=== PATIENT | female | born 1975 | race Caucasian/White ===

== ENCOUNTER → 2017-01-16 | Outpatient (CLI) | payer OTHER | END | disposition home or self-care (01) | LOC: CFH 15:13 | PROVIDERS: ATTEND Genetic Counselor, MS | DX: Z12.31 Encounter for screening mammogram for malignant neoplasm of breast (principal) | CPT/HCPCS: G0202 ==

== ENCOUNTER 2020-02-08 13:18 | Emergency (ER) | payer OTHER ==
[~2020-02-08] VITALS: Ht 157.5 cm; Wt 94.6 kg
--- NOTE | 2020-02-08 13:46 | NUR ---
THIS IS A 44 YO F W/ C/O ANXIETY, W/ SOB AND FAST HEART RATE X3 DAYS. PT REPORTS FIRST PANIC ATTACK IN OCTOBER OF THIS YEAR. DOES NOT TAKE DAILY MEDS FOR ANXIETY. TOOK HYDROXYZINE PRN 3 DAYS AGO W/ NO RELIEF. PT REPORTS INTERMITTENT RT CALF PAIN X1 MONTH. PT RESTING ON [employer] W/ CALL LIGHT IN REACH AND FAMILY AT BEDSIDE. ROSA SHELTON AT BEDSIDE FOR ED EVAL. RESP EVEN AND UNLABORED, LEAH.
[2020-02-08] MEDS ORDERED: LORazepam 1MG TABLET ONE (13:58)
[2020-02-08] MEDS ORDERED: LORazepam 1MG TABLET PO ONE (14:00)
--- NOTE | 2020-02-08 14:07 | NUR ---
PT MEDICATED PER EMAR. RESTING ON GURNEY W/ CALL LIGHT IN REACH AND FAMILY AT BEDSIDE. VSS, PRICEN. AWAITING US.
[2020-02-08 14:14] LABS: MEAN CORPUSCULAR HEMOGLOBIN 31.9 pg (27.0-34.8); MEAN CORPUSCULAR HGB CONC 33.7 g/dL (32.4-35.8); MEAN CORPUSCULAR VOLUME 94.9 fL (80-100); MEAN PLATELET VOLUME 6.7 fL (7.4-10.4); PLATELET COUNT 454 x10^3/uL (130-400); RED CELL DISTRIBUTION WIDTH 13.4 % (9.6-15.2)
[2020-02-08 14:23] LABS: ALBUMIN 3.4 g/dL (3.4-5.0); ANION GAP 8 mmol/L (5-15); CALCIUM 9.2 mg/dL (8.5-10.1); CHLORIDE 113 mmol/L (98-107); CREATININE 0.75 mg/dL (0.55-1.02); T4 (THYROXINE) 11.6 mcg/dL (4.8-13.9)
--- NOTE | 2020-02-08 14:26 | NUR ---
US AT BEDSIDE.
[2020-02-08 14:27] LABS: TROPONIN I < 0.015 ng/mL (0.000-0.045)
[2020-02-08 14:44] LABS: BASOPHILS # (AUTO) 0.03 x10^3/uL (0-0.1); BASOPHILS % (AUTO) 0 % (0-1); EOSINOPHILS # (AUTO) 0.12 x10^3/uL (0-0.4); EOSINOPHILS % (AUTO) 1 % (1-7); LYMPHOCYTES # (AUTO) 2.12 x10^3/uL (1-3.4); LYMPHOCYTES % (AUTO) 18 % (22-44); MD SCAN; MONOCYTES # (AUTO) 0.49 x10^3/uL (0.2-0.8); MONOCYTES % (AUTO) 4 % (2-9); NEUTROPHILS # (AUTO) 9.09 x10^3/uL (1.8-6.8); NEUTROPHILS % (AUTO) 77 % (42-75)
[2020-02-08 14:46] VITALS: BP 129/79
--- NOTE | 2020-02-08 15:01 | NUR ---
REPORT FROM CARLITA PLASCENCIA, ASSUME CARE OF PT AT THIS TIME.
== END 2020-02-08 15:24 | disposition home or self-care (01) ==
LOC: ED 13:51
DX: F41.1 Generalized anxiety disorder (principal); M79.661 Pain in right lower leg; R00.2 Palpitations; R07.89 Other chest pain; M79.89 Other specified soft tissue disorders
CPT/HCPCS: 36415; 71045; 80048; 82040; 84436; 84443; 84484; 85025; 85379; 93005; 99285

== ENCOUNTER 2020-03-01 15:15 | Emergency (ER) | payer OTHER ==
[~2020-03-01] VITALS: Ht 157.5 cm; Wt 99.2 kg
--- NOTE | 2020-03-01 15:54 | NUR ---
PT AMBULATORY TO ROOM 19 W/ C/O CHEST TIGHTNESS, FEELINGS OF ANXIETY, SOB STARTED LAST NIGHT. PT STATES SHE TOOK HER ATIVAN TO HELP HER SLEEP BUT AWOKE THIS AM W/ CONTINUED ANXIETY. PT STATES SHE WAS SEEN HERE FOR SAME 02/08/2020. PT ALSO C/O STUFFY NOSE FEELING BUT IS ABLE TO BREATHE THROUGH NOSE. PT RESTING ON GURNEY. NADN. MONITORS APPLIED. VSS.
[2020-03-01] MEDS ORDERED: LORazepam 1MG TABLET ONE (16:53)
--- NOTE | 2020-03-01 16:55 | NUR ---
BREAK RN: PT MED NOTED. VSS, AT BEDSIDE. CALL LIGHT W/I REACH
[2020-03-01] MEDS ORDERED: LORazepam 1MG TABLET PO ONE (17:00)
[2020-03-01 17:27] VITALS: BP 114/59
--- NOTE | 2020-03-01 17:27 | NUR ---
PT RESTING ON GURNEY. NADN. MILLAN.
--- NOTE | 2020-03-01 17:45 | NUR ---
PT STATES SHE FEELS MUCH IMPROVED. ERP NOTIFIED. PT PLACED FOR RECHECK.
== END 2020-03-01 18:00 | disposition home or self-care (01) ==
LOC: ED 16:03
DX: F41.1 Generalized anxiety disorder (principal); R06.02 Shortness of breath; R07.89 Other chest pain; Z87.891 Personal history of nicotine dependence
CPT/HCPCS: 93005; 99283